=== PATIENT | male | born 1975 | race American Indian/Alaskan Native ===

== ENCOUNTER → 2024-06-26 07:27 | Outpatient (REF) | payer OTHER, SELFPAY | LOC: HWRAD 07:27 | PROVIDERS: ATTENDING PHYSICIAN Family Medicine | DX: R51.9 Headache, unspecified (principal) | CPT/HCPCS: 70450 ==

== ENCOUNTER → 2024-09-17 06:35 | Outpatient (REF) | payer OTHER, SELFPAY | LOC: MRI 3T 06:35 | PROVIDERS: ATTENDING PHYSICIAN Family Medicine | DX: G89.29 Other chronic pain (principal) | CPT/HCPCS: 72141 ==

== ENCOUNTER 2025-01-17 06:19 | Day surgery (SDC) | payer OTHER, SELFPAY | END 2025-01-17 09:54 | disposition home or self-care (01) | LOC: GI 06:19 | PROVIDERS: ATTENDING PHYSICIAN Internal Medicine Gastroenterology | DX: Z12.11 Encounter for screening for malignant neoplasm of colon (principal); K64.8 Other hemorrhoids; D12.2 Benign neoplasm of ascending colon; K63.5 Polyp of colon; K62.89 Other specified diseases of anus and rectum | CPT/HCPCS: 45385; 45380; 88305 ==

== ENCOUNTER → 2025-08-02 10:50 | Outpatient (REF) | payer OTHER, SELFPAY | LOC: HWRAD 10:50 | PROVIDERS: ATTENDING PHYSICIAN Family Medicine | DX: M79.604 Pain in right leg (principal) | CPT/HCPCS: 76882 ==

== ENCOUNTER 2025-10-23 06:44 | Outpatient (RCR) | payer OTHER, SELFPAY | END 2025-10-23 23:59 | disposition home or self-care (01) | LOC: RPT 06:44 | PROVIDERS: ATTENDING PHYSICIAN Family Medicine | DX: M54.50 Low back pain, unspecified (principal); Z73.6 Limitation of activities due to disability; R26.89 Other abnormalities of gait and mobility; G89.29 Other chronic pain | CPT/HCPCS: 97110; 97112; 97162; 97530 ==